=== PATIENT | female | born 1960 | race Caucasian/White ===

== ENCOUNTER 2020-05-03 18:10 | Inpatient (IN) | payer OTHER ==
[~2020-05-03] VITALS: Ht 157.5 cm; Wt 88.9 kg
[2020-05-03] MEDS ORDERED: SODIUM CHLORIDE 0.9% 1,000 ML IV ONE (19:00)
[2020-05-03 19:47] LABS: BASOPHILS % 0.3 % (0.0-2.0); EOSINOPHILS % 0.6 % (0.0-5.0); HEMATOCRIT. 37.9 % (36.0-48.0); HEMOGLOBIN. 12.8 g/dL (12.0-16.0); LYMPHOCYTES % 35.9 % (20.0-50.0); MEAN CORPUSCULAR HEMOGLOBIN 30.8 pg (28.0-32.0); MEAN CORPUSCULAR VOLUME 90.9 fL (81.0-99.0); MEAN PLATELET VOLUME 10.1 fl (7.4-10.4); MONOCYTES % 5.2 % (2.0-8.0); PLATELET 218 x1000/uL (130-400); RED BLOOD CELL COUNT 4.17 mill/uL (4.2-5.4)
[2020-05-03 19:52] LABS: CHLORIDE 106 mEq/L (98-107)
[2020-05-03 19:56] LABS: ETHANOL BLOOD < 10 mg/dL
[2020-05-03 20:01] LABS: PROTHROMBIN TIME 10.1 sec (9.6-11.0)
[2020-05-03 21:19] LABS: CLARITY URINE CLEAR (CLEAR); COLOR URINE YELLOW (YELLOW); KETONES URINE NEGATIVE (NEGATIVE); LEUKOCYTE ESTERASE URINE NEGATIVE (NEGATIVE); NITRITE URINE NEGATIVE (NEGATIVE); OCCULT BLOOD URINE NEGATIVE (NEGATIVE); PROTEIN URINE 1+ (NEGATIVE); SPECIFIC GRAVITY URINE 1.019 (1.005-1.030); UROBILINOGEN URINE 0.2 E.U./dL (0.2-1.0)
[2020-05-03 21:34] LABS: *AMPHETAMINES SCREEN URINE NEGATIVE (NEGATIVE); *BARBITURATES SCREEN URINE NEGATIVE (NEGATIVE); *BENZODIAZEPINES SCREEN URINE NEGATIVE (NEGATIVE); *COCAINE SCREEN URINE NEGATIVE (NEGATIVE); METHADONE URINE SCREEN NEGATIVE (NEGATIVE); OPIATES URINE SCREEN NEGATIVE (NEGATIVE)
[2020-05-03 21:35] LABS: CANNABINOID URINE SCREEN PRESUMTIVE POSITIVE (NEGATIVE); PHENCYCLIDINE URINE SCREEN NEGATIVE (NEGATIVE)
[2020-05-04] VITALS (9 sets, daily range): BP systolic 119–174; BP diastolic 80–118
[2020-05-04] MEDS ORDERED: POTASSIUM CHLORIDE 20MEQ TABLET SR PO SCH (02:45)
[2020-05-04] MEDS: HYDROCODONE/APAP 7.5/325MG 1 TAB TABLET PO PRN (02:58)
[2020-05-04] MEDS ORDERED: CLONIDINE 0.1MG TABLET PO PRN (06:45)
[2020-05-04] MEDS: ENOXAPARIN 40MG/0.4ML SYR SUBCUT SCH (08:44)
[2020-05-04 10:08] LABS: CHLORIDE 107 mEq/L (98-107)
[2020-05-04 10:15] LABS: CREATINE KINASE 101 IU/L (26-192)
[2020-05-04 10:16] LABS: BASOPHILS % 0.3 % (0.0-2.0); EOSINOPHILS % 0.2 % (0.0-5.0); HEMATOCRIT. 36.9 % (36.0-48.0); HEMOGLOBIN. 12.5 g/dL (12.0-16.0); LYMPHOCYTES % 21.5 % (20.0-50.0); MEAN CORPUSCULAR HEMOGLOBIN 31.1 pg (28.0-32.0); MEAN CORPUSCULAR VOLUME 91.9 fL (81.0-99.0); MEAN PLATELET VOLUME 10.3 fl (7.4-10.4); MONOCYTES % 3.9 % (2.0-8.0); NEUTROPHILS % 74.1 % (40.0-76.0); PLATELET 196 x1000/uL (130-400); RED BLOOD CELL COUNT 4.01 mill/uL (4.2-5.4); RED CELL DISTRIBUTION WIDTH 12.8 % (11.6-14.6)
[2020-05-04 10:17] LABS: CREATINE KINASE MB FRACTION < 1.0 ng/mL (0.5-3.6)
[2020-05-04] MEDS: SODIUM CHLORIDE 0.9% 1,000 ML IV SCH ×2 (10:24→17:59)
[2020-05-04] MEDS: CEFTRIAXONE 1,000 MG in DEXTROSE 5% WATER 50 ML IV SCH (15:14)
[2020-05-04] MEDS: LOSARTAN POTASSIUM 50 MG TABLET PO SCH (17:59)
[2020-05-04] MEDS: VANCOMYCIN 1 G PREMIX 200 ML IV SCH (23:27)
[2020-05-05] VITALS: BP 116/74
[2020-05-05 04:00] VITALS: BP 110/75
[2020-05-05 05:54] LABS: BASOPHILS % 0.5 % (0.0-2.0); EOSINOPHILS % 1.2 % (0.0-5.0); HEMATOCRIT. 36.9 % (36.0-48.0); HEMOGLOBIN. 12.4 g/dL (12.0-16.0); MEAN CORPUSCULAR VOLUME 92.5 fL (81.0-99.0); MEAN PLATELET VOLUME 10.2 fl (7.4-10.4); MONOCYTES % 5.5 % (2.0-8.0); NEUTROPHILS % 56.8 % (40.0-76.0); PLATELET 176 x1000/uL (130-400); RED BLOOD CELL COUNT 3.99 mill/uL (4.2-5.4); RED CELL DISTRIBUTION WIDTH 12.9 % (11.6-14.6)
[2020-05-05 05:56] LABS: CHLORIDE 109 mEq/L (98-107)
[2020-05-05 06:09] LABS: LDL CHOLESTEROL 71 mg/dL (5-100)
[2020-05-05 06:10] LABS: CREATINE KINASE 91 IU/L (26-192); CREATINE KINASE MB FRACTION < 1.0 ng/mL (0.5-3.6)
[2020-05-05 06:11] LABS: HDL CHOLESTEROL 40 mg/dL (40-59)
[2020-05-05] MEDS: VANCOMYCIN 1 G PREMIX 200 ML IV SCH (06:22)
[2020-05-05] MEDS: SODIUM CHLORIDE 0.9% 1,000 ML IV SCH ×3 (06:29→21:06)
[2020-05-05 08:00] VITALS: BP_SYST 110; BP_SYST 128; BP_SYST 130; BP_DIAS 58; BP_DIAS 67; BP_DIAS 68
[2020-05-05] MEDS: LOSARTAN POTASSIUM 50 MG TABLET PO SCH (09:00)
[2020-05-05] MEDS: ENOXAPARIN 40MG/0.4ML SYR SUBCUT SCH (09:07)
[2020-05-05 12:07] VITALS: BP 145/96
[2020-05-05] MEDS: CEFTRIAXONE 1,000 MG in DEXTROSE 5% WATER 50 ML IV SCH (14:35)
[2020-05-05 16:00] VITALS: BP_SYST 116; BP_SYST 130; BP_SYST 146; BP_DIAS 65; BP_DIAS 88
[2020-05-05] MEDS ORDERED: VANCOMYCIN 1 G PREMIX 200 ML IV SCH (18:00)
[2020-05-05 19:26] LABS: T4 FREE 1.09 ng/dL (0.76-1.46)
[2020-05-05 20:00] VITALS: BP 145/97
[2020-05-05] MEDS: HYDROCODONE/APAP 7.5/325MG 1 TAB TABLET PO PRN (21:05)
[2020-05-05] MEDS: AMLODIPINE 2.5MG TABLET PO SCH (21:05)
[2020-05-06] VITALS: BP_SYST 131; BP_SYST 135; BP_SYST 136; BP_DIAS 85; BP_DIAS 87; BP_DIAS 91
[2020-05-06 04:00] VITALS: BP 146/88
[2020-05-06] MEDS: HYDROCODONE/APAP 7.5/325MG 1 TAB TABLET PO PRN (04:02)
[2020-05-06 04:10] LABS: CHLORIDE 107 mEq/L (98-107)
[2020-05-06 08:00] VITALS: BP 168/100
[2020-05-06] MEDS: ENOXAPARIN 40MG/0.4ML SYR SUBCUT SCH (09:20)
[2020-05-06] MEDS: AMLODIPINE 2.5MG TABLET PO SCH (09:20)
[2020-05-06] MEDS: SODIUM CHLORIDE 0.9% 1,000 ML IV SCH (09:21)
[2020-05-06 11:54] VITALS: BP 145/89
[2020-05-06] MEDS: CEFTRIAXONE 1,000 MG in DEXTROSE 5% WATER 50 ML IV SCH (14:25)
[2020-05-06] MEDS ORDERED: AMLO2.5T45 PO (15:53)
[2020-05-06] MEDS ORDERED: ASPI-986 MT (15:53)
[2020-05-06] MEDS ORDERED: ATOR10TA MT (15:53)
[2020-05-06 15:56] VITALS: BP 151/94
[2020-05-06 16:05] VITALS: BP 146/87
== END 2020-05-06 17:25 | disposition home or self-care (01) | DRG 640 ==
LOC: ER 18:10 → EDBEDREQTM 18:59 → EDBEDREQ 18:59 → 8WST 21:55 → EDBEDREQ 21:59 → EDBEDREQTM 21:59 → EDBEDREQSVC 21:59 → ENRESERV 05-04 04:21
PROVIDERS: ADMIT Internal Medicine; ATTEND Internal Medicine
DX: E87.6 Hypokalemia (principal); R57.1 Hypovolemic shock; N39.0 Urinary tract infection, site not specified; R55 Syncope and collapse; Z86.73 Personal history of transient ischemic attack (TIA), and cerebral infarction without residual deficits; E03.9 Hypothyroidism, unspecified; I10 Essential (primary) hypertension; F41.9 Anxiety disorder, unspecified; R73.9 Hyperglycemia, unspecified; E66.9 Obesity, unspecified; F12.90 Cannabis use, unspecified, uncomplicated; Z90.710 Acquired absence of both cervix and uterus; Z82.49 Family history of ischemic heart disease and other diseases of the circulatory system; Z87.891 Personal history of nicotine dependence; Z71.6 Tobacco abuse counseling; Z71.51 Drug abuse counseling and surveillance of drug abuser; Z68.35 Body mass index [BMI] 35.0-35.9, adult; R77.8 Other specified abnormalities of plasma proteins
CPT/HCPCS: 36415; 70544; 70553; 71045; 80048; 80053; 80061; 80202; 80305; 80320; 81003; 82550; 82553; 82607; 82746; 83036; 83520; 83605; 83735; 83880; 84145; 84439; 84443; 84481; 84484; 85025; 85379; 93005; 93306; 93880; 97162; 97166; 99285; J0696; J1650; J3370; J7030; J7060; G0480